=== PATIENT | female | born 1990 | race Caucasian/White ===

== ENCOUNTER 2016-07-14 09:20 | Inpatient (IN) | payer OTHER ==
[2016-07-09 13:25] VITALS: BMI 40.4
[~2016-07-14 09:20] MED LIST: METHYLENE BLUE 1% 10 MG/1 ML VIAL NR ONE; ceFAZolin SODIUM 1 GM VIAL IVPB ONE
[2016-07-14] MEDS ORDERED: MIDAZOLAM HCL 2 MG/2 ML SINGLE DOSE VIAL ONE ×2 (14:04→16:04)
[2016-07-14] MEDS ORDERED: ROCURONIUM BROMIDE 50 MG/5 ML VIAL ONE ×2 (14:04→15:41)
[2016-07-14] MEDS ORDERED: LIDOCAINE HCL/PF 2% SDV 5ML VIAL ONE (14:06)
[2016-07-14] MEDS ORDERED: VASOPRESSIN 20 UNITS/ML VIAL IV ONE (14:07)
[2016-07-14] MEDS ORDERED: METHYLENE BLUE 1% 10 MG/1 ML VIAL ONE (14:07)
[2016-07-14] MEDS ORDERED: IBUPROFEN 800 MG/8 ML IJ IVPB PRN (15:09)
[2016-07-14] MEDS ORDERED: ONDANSETRON 4 MG/2 ML VIAL IVPB PRN ×2 (15:09→15:18)
[2016-07-14] MEDS ORDERED: IBUPROFEN 600 MG TABLET (FP) PO PRN (15:09)
--- NOTE | 2016-07-14 15:09 | HP ---
History & Physical Update - History History: No Change - Physical Physical: No Change - Assessment Assessment: No Change - Plan Plan: No Change (Nallely in the chart Meds: Metformin 1000mg BID Synthroid 75mcg am Lyrica 150mg tid Klonopin .5mg am)
[2016-07-14] MEDS ORDERED: DEXAMETHASONE SOD PHOSPHATE 4 MG/1 ML VIAL ONE (15:13)
[2016-07-14] MEDS ORDERED: ceFAZolin SODIUM 1 GM VIAL ONE (15:13)
[2016-07-14] MEDS ORDERED: ELECTROLYTE-148 SOLN 1,000 ML IV SCH (15:15)
[2016-07-14] MEDS ORDERED: ceFAZolin SODIUM 1 GM VIAL IVPB ONE (15:15)
[2016-07-14] MEDS ORDERED: HYDROmorphone HCL/PF 1 MG/ML VIAL (FOR PYXIS CHARGING ONLY) ONE ×2 (15:31→15:46)
[2016-07-14] MEDS ORDERED: GLYCOPYRROLATE 0.2 MG/1 ML VIAL ONE (16:21)
[2016-07-14] MEDS ORDERED: NEOSTIGMINE METHYLSULFATE 0.5 MG/ML - 10 ML MDV ONE (16:21)
[2016-07-14] MEDS ORDERED: METHYLENE BLUE 1% 10 MG/1 ML VIAL NR ONE (16:29)
--- NOTE | 2016-07-14 17:01 | OP ---
Operative Note - Note: Operative Date: 07/14/16 Pre-Operative Diagnosis: 26 yo P1 with pelvic pain, Dysmerorhea, Uterine fibroid Operation: Exploratory laparatomy, Myomectomy Findings: 6cm posterior wall fibroid normal tubes, ovaries Successful chromopertubation Post-Operative Diagnosis: Same as Pre-op Surgeon: Radha Cox Outboard Motor Assembler: Leobardo Albarran Anesthesiologist/ARTILLERY MAINTENANCE SUPERVISOR: Lamin De Los Santos Anesthesia: General Specimens Removed: 6cm fibroid Estimated Blood Loss (mls): 50 Drains, Volume Out (mls): 500 Fluid Volume Replaced (mls): 1,500 Operative Report Dictated: Yes
[2016-07-14] MEDS ORDERED: PROMETHAZINE HCL 25 MG/1 ML VIAL IVPUSH PRN (17:11)
[2016-07-14] MEDS ORDERED: PROMETHAZINE HCL 25 MG/1 ML VIAL IVPB PRN (17:11)
[2016-07-14] MEDS ORDERED: LORAZEPAM CARPU-JECT 2 MG/ML DISP.SYRIN IVPUSH ONE (17:11)
[2016-07-14] MEDS ORDERED: ONDANSETRON 4 MG/2 ML VIAL IVPUSH PRN (17:11)
[2016-07-14] MEDS ORDERED: ACETAMINOPHEN 1000 MG/100 ML VIAL (NON FORMULARY) IVPB ONE (17:11)
[2016-07-14] MEDS ORDERED: ACETAMINOPHEN INJECTION 100 ML IVPB ONE (17:12)
[2016-07-14] MEDS ORDERED: HYDROmorphone *PCA* 10MG/50ML DISP.SYRIN PCA ONE (17:12)
[2016-07-14] MEDS ORDERED: CEFAZOLIN 2 GM/D5W 50 ML IVPB SCH (18:00)
[2016-07-14] MEDS: HYDROmorphone *PCA* 10MG/50ML DISP.SYRIN PCA SCH (19:49)
[2016-07-14] MEDS ORDERED: LORAZEPAM CARPU-JECT 2 MG/ML DISP.SYRIN ONE (19:55)
[2016-07-14] MEDS ORDERED: CEFAZOLIN (PRE-DOCKED) 50 ML IVPB ONE (19:57)
[2016-07-14] MEDS: ELECTROLYTE-148 SOLN 1,000 ML IV SCH (20:10)
[2016-07-14] MEDS: LACTATED RINGERS SOLUTION 1,000 ML IV SCH (20:10)
--- NOTE | 2016-07-14 22:16 | PN ---
<Genna Salas - Last Filed: 07/14/16 22:15> Teaching Attending Note Name of Resident: Shena Maradiaga ATTENDING PHYSICIAN STATEMENT I saw and evaluated the patient. I reviewed the resident's note and discussed the case with the resident. I agree with the resident's findings and plan as documented. SUBJECTIVE: OBJECTIVE: ASSESSMENT AND PLAN: <Rodri Martinez - Last Filed: 07/14/16 22:49> Teaching Attending Note ATTENDING PHYSICIAN STATEMENT I saw and evaluated the patient. I reviewed the resident's note and discussed the case with the resident. I agree with the resident's findings and plan as documented. SUBJECTIVE: 26 yof A1 who was seen for uterine fibroids sp myomectomy today who we were consulted for her bilateral calf pain. Calf pain onset 2 hours ago. The patient stated that she initially thoat the pain felt like soreness but more recently feels like a eugene horse. The patient reported that her pain is worse in her left leg than in her right. Today is POD day 0. Patient denies fever or chills. OBJECTIVE: Vital Signs: Last Vital Signs Temp Pulse Resp BP Pulse Ox 98.4 F 74 16 130/66 96 07/14/16 19:10 07/14/16 19:10 07/14/16 19:10 07/14/16 19:10 07/14/16 18:50 Physical Exam: GEN: NAD HEENT: NCAT, PERRL CARD: RRR, S1 S2 RESP: CTAB ABD: NT, BWS x4 EXT: - bilateral calf tenderness on palpation. ASSESSMENT AND PLAN: 26 yof A1 who was seen for uterine fibroids s/p myomectomy today consult for bilateral calf pain. 1. Bilateral calf pain -Stat bl lower extremity duplex -Check electrolyte levels and replete if necessary -Pt was placed on lovenox 40mg Q12H post surgery -D dimer would not be useful as patient is post surgical -Would hold off full AC as patient is POD 0 -Await results of duplex Thank you for the consultative opportunity. Documentation prepared by Rodri Martinez, acting as forensic medical examiner for Dr. Genna Salas MD.
[2016-07-14] MEDS: CEFAZOLIN 2 GM/D5W 50 ML IVPB SCH (23:20)
--- NOTE | 2016-07-14 23:33 | HOSP ---
Subjective - Review of Symptoms Subjective: Was paged by the nurse to inform me that patient is complaining of "eugene horse" in bilateral legs. Immediately went to assess the patient. Patient had an elective Myomectomy with Chromotubation today at 5 pm in the evening. Was brought in the unit at around 7:15pm. Patient said after she came back to the unit, she has been having severe calf muscle cramps bilaterally, on/off since half an hour. Has abdominal pain which is controlled by the HOSPITAL WARD CLERK hydromorphone pump. No other complaints. Denies chest pain, sob, cough, palpitation, fever, chills, rigors, sweating. Physical Examination: Vitals: BP 120/75mmHg, P-68bpm, T-98.2F, RR-15 General: Morbidly obese female, awake, alert, oriented x 3, in no acute distress. HEENT: EOM intact, no pallor or icterus. Chest: B/L lungs clear, no added sounds CVS: Regular rate and rhythm, no murmur Abdomen: Soft, tenderness over the surgical site, bandage applied, no soakage, organomegaly couldn't be appreciated Lower extremities: B/L calf tenderness, no peripheral edema. A/P Patient is a 26 year old with PMHx of hypothyroidism and anxiety Calf muscle cramps- R/O Electrolyte imbalance, R/O DVT given the h/o of recent surgery Ordered CMP and Duplex to r/o DVT 07/14/2016 11:00pm Duplex of b/l lower extremities-Negative for DVT CMP Illness, Investigation and Plan of care explained to the patient. She verbalized understanding. Case discussed with Dr. Salas. Physical Examination Vital Signs: Vital Signs Temperature 98.4 F 07/14/16 19:10 Pulse Rate 74 07/14/16 19:10 Respiratory Rate 16 07/14/16 19:10 Blood Pressure 130/66 07/14/16 19:10 O2 Sat by Pulse Oximetry (%) 96 07/14/16 18:50
[2016-07-14 23:44] LABS: ALBUMIN 3.6 g/dl (3.4-5.0); ALK PHOS 94 U/L (45-117); ANION GAP 11 (8-16); BILIRUBIN,TOTAL 0.5 mg/dL (0.2-1.0); CALCIUM 8.8 mg/dL (8.5-10.1); CO2 26 mmol/L (21-32); CREATININE 0.8 mg/dL (0.55-1.02); GLUCOSE,RANDOM 153 mg/dL (74-106); SGOT/AST 35 U/L (15-37); SGPT/ALT 42 U/L (12-78); TOT PROT 7.1 g/dl (6.4-8.2)
--- NOTE | 2016-07-15 00:22 | OP ---
DATE OF OPERATION: 07/14/2016 SURGEON: Radha Cox MD RIB STIFFENER AND HEEL DIPPER: Leobardo Albarran MD PREOPERATIVE DIAGNOSIS: 26-year-old para 1 with pelvic pain, dysmenorrhea, and uterine fibroids. POSTOPERATIVE DIAGNOSIS: 26-year-old para 1 with pelvic pain, dysmenorrhea, and uterine fibroids. PROCEDURE: Exploratory laparotomy, myomectomy. ANESTHESIA: General, Dr. De Los Santos. FINDINGS: A 6-cm posterior wall fibroid. Normal tubes and ovaries bilaterally. Successful chromopertubation. SPECIMEN REMOVED: A 6-cm fibroid. ESTIMATED BLOOD LOSS: 50 mL. URINE OUTPUT: 500 mL. FLUID VOLUME REPLACED: 1500 mL. DESCRIPTION OF OPERATIVE PROCEDURE: The patient was explained the risks, benefits, and alternatives of the procedure and signed an informed consent with witness present. The patient was taken to the operating room where patient's medical record number was confirmed during the preoperative timeout. After the establishment of adequate anesthesia, sequential devices were placed and antibiotic prophylaxis was given. The patient was placed in the dorsal lithotomy position using Amadeo stirrups. Patient was prepped and draped in the usual sterile fashion. Pelvic examination conducted after administration of the anesthesia. The uterus was found to be approximately 12 weeks with the posterior 6-cm fibroid. Subsequently, cervix was dilated to allow placement of the HUMI manipulator and Kenndey catheter was placed sterilely. Subsequently, Pfannenstiel skin incision was made with a scalpel, brought down to the level of fascia with Bovie cautery. Fascia was incised in the same fashion as the Pfannenstiel skin incision. The fascial incision was extended bilaterally with Bovie cautery. Huma clamps were placed on the fascia and it was dissected to the rectus abdominis muscle inferiorly and superiorly. Rectus abdominis muscle was split in the midline and peritoneum was tended with Kassandra clamps with good visualization of underlying bowel. It was incised with Metzenbaum scissors and peritoneal incision was extended bilaterally with Bovie cautery. Patient was placed into Trendelenburg position and bowel was tucked with bilateral sponges. The uterus was exteriorized and posterior wall 6-cm fibroid was noted. Normal tubes and ovaries were also noted bilaterally. Then 5 mL of dilute Pitocin solution was injected into the serosa overlying the fibroid. Bovie cautery was used to incise the uterine serosa over the fibroid. Subsequently 2 Allis clamps were placed on the serosa and sweetheart tenaculum was used to grasp the fibroid muscle. Traction and countertraction were used and approximately 6-cm fibroid was excised out of the uterus and sent to pathology. The created defect was subsequently repaired with 0 V-loc stitch in running multilayer closure and subsequently 2-0 V-loc stitch was used to reapproximate the muscle further. There were multiple layers of muscle that were brought together to close the defect. Subsequently 2-0 Vicryl suture was used to create a baseball stitch on serosal surfaces. Excellent hemostasis was achieved. Uterus was returned into the pelvis and chromopertubation with methylene blue injection was performed. Bilateral spillage from fallopian tubes was noted. Abdomen was irrigated with sterile water. Excellent hemostasis was achieved. All instruments and sponges were removed from the abdomen. Count was correct. Subsequently, the peritoneum was repaired with 2-0 Vicryl in running suture. Muscle was reapproximated in the midline with 2-0 Vicryl. The fascial incision was repaired with 0 Vicryl in two halves. The subcutaneous tissue, which was approximately 2 inches, was reapproximated with 2-0 Vicryl to close the subcutaneous defect and decrease the risk of seroma formation. Skin was closed with 3-0 Biosyn in a subcuticular fashion. Dressing was placed on the abdomen. The uterine manipulator was removed from the cervix. The patient was replaced into the supine position. Lap, instrumention, and sponge count was correct x2. Drake [id number]
[2016-07-15] MEDS: LACTATED RINGERS SOLUTION 1,000 ML IV SCH ×2 (01:26→19:33)
--- NOTE | 2016-07-15 02:10 | CONSULT ---
Consultation: REQUESTING PROVIDER: CONSULT REQUEST: We have been asked to medically evaluate this patient for B/L leg crams HISTORY OF PRESENT ILLNESS: Patient is a 26 year old female with past medical history of Hypothyroidism , anxiety, fibroid uterus was admitted at [facility] for an elective myomectomy. Patient had an elective Myomectomy with Chromotubation today at 5 pm in the evening. Was brought in the unit at around 7:15pm. Patient said after she came back to the unit, she has been having severe calf muscle cramps bilaterally, on/off since half an hour. Has abdominal pain which is controlled by the AREA LOSS PREVENTION MANAGER hydromorphone pump. No other complaints. Denies chest pain, sob, cough, palpitation, fever, chills, rigors, sweating, nausea or vomiting. Past Medical Hx: as mentioned above Allergies: Ketorolac Past Surgical Hx: LSC Fallopian tube cyst 2007 LSC scar tissue 2010 LSC cholecystectomy 2016 Wrist surgery Family Hx: Not significant Smoking: Denies Alcohol: Denies Drugs: Denies REVIEW OF SYSTEMS: CONSTITUTIONAL: Absent: fever, chills, diaphoresis, generalized weakness, malaise, loss of appetite, weight change HEENT: Absent: rhinorrhea, nasal congestion, throat pain, throat swelling, difficulty swallowing, mouth swelling, ear pain, eye pain, visual changes CARDIOVASCULAR: Absent: chest pain, syncope, palpitations, irregular heart rate, lightheadedness , peripheral edema RESPIRATORY: Absent: cough, shortness of breath, dyspnea with exertion, orthopnea, wheezing, stridor, hemoptysis GASTROINTESTINAL: Absent: abdominal pain, abdominal distension, nausea, vomiting, diarrhea, constipation, melena, hematochezia GENITOURINARY: Absent: dysuria, frequency, urgency, hesitancy, hematuria, flank pain, genital pain MUSCULOSKELETAL: Present: B/L calf muscle cramps Absent: myalgia, arthralgia, joint swelling, back pain, neck pain SKIN: Absent: rash, itching, pallor HEMATOLOGIC/IMMUNOLOGIC: Absent: easy bleeding, easy bruising, lymphadenopathy, frequent infections ENDOCRINE: Absent: unexplained weight gain, unexplained weight loss, heat intolerance, cold intolerance NEUROLOGIC: Absent: headache, focal weakness or paresthesias, dizziness, unsteady gait, seizure, mental status changes, bladder or bowel incontinence PSYCHIATRIC: Absent: anxiety, depression, suicidal or homicidal ideation, hallucinations. PHYSICAL EXAMINATION Vital Signs - 24 hr 07/14/16 07/14/16 07/14/16 10:24 10:44 10:45 Temperature 97.8 F 97.8 F Pulse Rate 73 73 Respiratory 19 19 Rate Blood Pressure 122/81 122/81 O2 Sat by Pulse 97 Oximetry (%) 07/14/16 07/14/16 07/14/16 17:04 17:20 17:30 Temperature 97.5 F L Pulse Rate 75 66 68 Respiratory 16 18 18 Rate Blood Pressure 119/74 128/76 118/70 O2 Sat by Pulse 95 98 Oximetry (%) 07/14/16 07/14/16 07/14/16 17:35 17:50 18:00 Temperature Pulse Rate 68 74 72 Respiratory 18 16 16 Rate Blood Pressure 118/70 110/70 118/75 O2 Sat by Pulse 97 97 Oximetry (%) 07/14/16 07/14/16 07/14/16 18:05 18:20 18:30 Temperature Pulse Rate 72 76 65 Respiratory 16 16 16 Rate Blood Pressure 118/75 113/70 116/68 O2 Sat by Pulse 96 96 Oximetry (%) 07/14/16 07/14/16 07/14/16 18:35 18:50 19:10 Temperature 98.4 F Pulse Rate 65 76 74 Respiratory 16 18 16 Rate Blood Pressure 116/68 115/70 130/66 O2 Sat by Pulse 95 96 Oximetry (%) 07/14/16 07/15/16 20:00 01:33 Temperature 98.2 F 98.1 F Pulse Rate 65 90 Respiratory 18 18 Rate Blood Pressure 123/71 132/77 O2 Sat by Pulse Oximetry (%) General: Morbidly obese female, awake, alert, oriented x 3, in no acute distress. HEENT: EOM intact, no pallor or icterus. Chest: B/L lungs clear, no added sounds CVS: Regular rate and rhythm, no murmur Abdomen: Soft, tenderness over the surgical site, bandage applied, no soakage, organomegaly couldn't be appreciated Lower extremities: B/L calf tenderness, no peripheral edema. Laboratory Results - last 24 hr 07/14/16 07/14/16 07/14/16 09:43 09:43 10:05 Sodium Potassium Chloride Carbon Dioxide Anion Gap BUN Creatinine Creat Clearance w eGFR Random Glucose Calcium Magnesium Total Bilirubin AST ALT Alkaline Phosphatase Total Protein Albumin Urine HCG, Qual Negative Blood Type O NEGATIVE O NEGATIVE Antibody Screen Negative 07/14/16 07/15/16 23:10 00:28 Sodium 140 Potassium 4.3 Chloride 103 Carbon Dioxide 26 Anion Gap 11 BUN 8 Creatinine 0.8 Creat Clearance w eGFR > 60 Random Glucose 153 H Calcium 8.8 Magnesium 1.7 L Total Bilirubin 0.5 AST 35 ALT 42 Alkaline Phosphatase 94 Total Protein 7.1 Albumin 3.6 Urine HCG, Qual Blood Type Antibody Screen Active Medications Generic Name Dose Route Start Last Admin Trade Name Freq PRN Reason Stop Dose Admin Clonazepam 0.5 mg 07/14/16 17:04 Klonopin - PO BID PRN ANXIETY Diphenhydramine HCl 12.5 mg 07/14/16 17:11 Benadryl Injection - IVPUSH ONCE PRN FOR ITCHING Enoxaparin Sodium 40 mg 07/15/16 08:00 Lovenox - SQ Q12H LILIAN Fentanyl 50 mcg 07/14/16 17:11 Sublimaze Injection - IVPUSH 07/17/16 17:12 [id number] PRN PAIN Hydromorphone HCl 0 mg 07/14/16 17:15 07/14/16 19:49 Dilaudid Tax Map Technician - AREA LOSS PREVENTION MANAGER 07/21/16 17:13 Not Given AREA LOSS PREVENTION MANAGER [facility] Protocol Parenteral Electrolytes 1,000 mls @ 125 mls/hr 07/14/16 15:30 07/14/16 20:10 Plasma-Lyte 148 - IV Not Given ASDIR LILIAN Lactated Ringer's 1,000 mls @ 75 mls/hr 07/14/16 17:15 07/15/16 01:26 Lactated Ringers Solution IV 75 mls/hr ASDIR LILIAN Administration Cefazolin Sodium/Dextrose 50 mls @ 100 mls/hr 07/14/16 23:00 07/14/16 23:20 Ancef 2 Gm Premixed Ivpb - IVPB 07/15/16 07:29 100 mls/hr Q8H LILIAN Administration Ibuprofen 600 mg 07/14/16 15:09 Motrin - PO Q6H PRN FEVER Ibuprofen 800 mg 07/14/16 15:09 Caldolor Injection - IVPB Q6H PRN FEVER Levothyroxine Sodium 75 mcg 07/15/16 08:00 Synthroid - PO 07/15/16 08:01 ONCE ONE Ondansetron HCl 4 mg 07/14/16 15:18 Zofran Injection IVPB Q6H PRN NAUSEA Ondansetron HCl 4 mg 07/14/16 17:11 Zofran Injection IVPUSH 07/15/16 05:12 Q4H PRN NAUSEA AND/OR VOMITING Oxycodone HCl 5 mg 07/14/16 15:09 Roxicodone - PO Q4H PRN PAIN LEVEL 1-5 Promethazine HCl 12.5 mg 07/14/16 17:11 Phenergan Injection - IVPB Q6H PRN NAUSEA AND/OR VOMITING ASSESSMENT/PLAN: Patient is a 26 year old with PMHx of hypothyroidism and anxiety was admitted for an elective myomectomy now complaining of B/L leg cramps like "eugene horse". #Calf muscle cramps- R/O Electrolyte imbalance, R/O DVT given the h/o of recent surgery Ordered CMP and Duplex to r/o DVT 07/14/2016 11:00pm Duplex of b/l lower extremities-Negative for DVT CMP-Normal Magnesium-1.7-Magnesium repleted Patient improving. Illness, Investigation and Plan of care explained to the patient. She verbalized understanding. Case discussed with Dr. Salas. Thank you for this consultative opportunity. Visit type - Emergency Visit Emergency Visit: Yes ED Registration Date: 07/14/16 Care time: The patient presented to the Emergency Department on the above date and was hospitalized for further evaluation of their emergent condition. - New Patient This patient is new to me today: Yes Date on this admission: 07/14/16 - Critical Care Critical Care patient: No
[2016-07-15] MEDS ORDERED: MAGNESIUM SULF 50% (8.12 MEQ/2 ML-1 GM VIAL) IVPB ONE (04:15)
[2016-07-15] MEDS ORDERED: MAGNESIUM SULFATE 2 GM in SODIUM CHLORIDE 100 ML IVPB ONE (04:30)
[2016-07-15] MEDS: MAGNESIUM SULF 50% (8.12 MEQ/2 ML-1 GM VIAL) IVPB ONE ×2 (04:40→05:00)
[2016-07-15] MEDS: CEFAZOLIN 2 GM/D5W 50 ML IVPB SCH (06:21)
[2016-07-15] MEDS ORDERED: LEVOTHYROXINE NA 75 MCG TABLET (FP) PO ONE (08:00)
[2016-07-15] MEDS: ENOXAPARIN NA (PORCINE) 40 MG/0.4 ML DISP.SYRIN SQ SCH ×2 (08:00→20:50)
[2016-07-15 08:26] LABS: MCH 31.9 pg (25.7-33.7); MCHC 33.5 g/dl (32.0-36.0); MEAN CELL VOLUME 95.3 fl (80-96); MEAN PLT VOLUME 8.3 fl (7.5-11.1); PLATELET COUNT 406 K/MM3 (134-434); RDW 13.4 % (11.6-15.6); WHITE BLOOD COUNT 19.4 K/mm3 (4.0-10.0)
[2016-07-15] MEDS: oxyCODONE HCL 5 MG TABLET PO PRN ×6 (09:04→22:24)
[2016-07-15] MEDS ORDERED: ONDANSETRON 8 MG TABLET (FP) PO PRN (09:29)
--- NOTE | 2016-07-15 09:35 | PN ---
Progress Note, Physician Chief Complaint: 26 yo P1 POD # 1 s/p Abdominal Myomectomy no complains, still in bed - Current Medication List Current Medications: Active Medications Acetaminophen (Tylenol -) 1,000 mg PO Q6H PRN PRN Reason: FEVER OR PAIN Clonazepam (Klonopin -) 0.5 mg PO BID PRN PRN Reason: ANXIETY Diphenhydramine HCl (Benadryl Injection -) 12.5 mg IVPUSH ONCE PRN PRN Reason: FOR ITCHING Enoxaparin Sodium (Lovenox -) 40 mg SQ Q12H [facility] Last Admin: 07/15/16 08:00 Dose: 40 mg Fentanyl (Sublimaze Injection -) 50 mcg IVPUSH [id number] PRN PRN Reason: PAIN Stop: 07/17/16 17:12 Hydromorphone HCl (Dilaudid Prop Maker -) 0 mg DIESEL ENGINE OPERATOR DIESEL ENGINE OPERATOR LILIAN PRN Reason: Protocol Stop: 07/21/16 17:13 Last Admin: 07/14/16 19:49 Dose: Not Given Parenteral Electrolytes (Plasma-Lyte 148 -) 1,000 mls @ 125 mls/hr IV ASDIR [facility] Last Admin: 07/14/16 20:10 Dose: Not Given Lactated Ringer's (Lactated Ringers Solution) 1,000 mls @ 75 mls/hr IV ASDIR [facility] Last Admin: 07/15/16 01:26 Dose: 75 mls/hr Ibuprofen (Motrin -) 600 mg PO Q6H PRN PRN Reason: FEVER Ibuprofen (Caldolor Injection -) 800 mg IVPB Q6H PRN PRN Reason: FEVER Ondansetron HCl (Zofran -) 8 mg PO Q8H PRN PRN Reason: NAUSEA Oxycodone HCl (Roxicodone -) 5 mg PO Q4H PRN PRN Reason: PAIN LEVEL 1-5 Last Admin: 07/15/16 09:04 Dose: 5 mg Promethazine HCl (Phenergan Injection -) 12.5 mg IVPB Q6H PRN PRN Reason: NAUSEA AND/OR VOMITING - Objective Vital Signs: Vital Signs Temperature 98.3 F 07/15/16 06:00 Pulse Rate 88 07/15/16 06:00 Respiratory Rate 18 07/15/16 06:00 Blood Pressure 114/64 07/15/16 06:00 O2 Sat by Pulse Oximetry (%) 96 07/14/16 18:50 Constitutional: Yes: Well Nourished HENT: Yes: WNL Neck: Yes: WNL Cardiovascular: Yes: WNL Respiratory: Yes: WNL Gastrointestinal: Yes: Hypoactive Bowel Sounds Genitourinary: Yes: WNL Musculoskeletal: Yes: WNL Extremities: Yes: WNL Integumentary: Yes: WNL Wound/Incision: Yes: Dressing Dry and Intact Neurological: Yes: WNL ...Motor Strength: WNL Psychiatric: Yes: Alert, Oriented Labs: CBC, BMP 07/15/16 06:50 07/14/16 23:10 Assessment/Plan 26 yo P1 POD#1 s/p Abdominal Myomectomy VSS, Afibrile h/h stable Elevated, likely reactional WBC, no signs of infection will repeat CBC 07/16/16 cont routine postOp care
[2016-07-15] MEDS: ACETAMINOPHEN 500 MG TABLET (FP) PO PRN ×3 (11:48→22:25)
--- NOTE | 2016-07-15 11:59 | PN ---
Progress Note (short form) - Note Progress Note: Anesthesia postop note 26 y/o F s/p GA for Abdominal Myomectomy POD#1, vss, aaox3, pain well controlled with youth pastor, tolerating po fluids Encouraged to ambulate, will dc the youth pastor. No anesthesia complications.
[2016-07-15] MEDS: clonazePAM 0.5 MG TABLET PO PRN ×2 (16:24→23:56)
[2016-07-15] MEDS: ELECTROLYTE-148 SOLN 1,000 ML IV SCH (19:28)
[2016-07-15] MEDS: HYDROmorphone *PCA* 10MG/50ML DISP.SYRIN PCA SCH (19:32)
[2016-07-16] MEDS: ACETAMINOPHEN 500 MG TABLET (FP) PO PRN ×3 (05:47→20:43)
[2016-07-16] MEDS: oxyCODONE HCL 5 MG TABLET PO PRN ×5 (05:47→22:29)
[2016-07-16] MEDS: clonazePAM 0.5 MG TABLET PO PRN ×2 (08:14→22:29)
[2016-07-16] MEDS: ENOXAPARIN NA (PORCINE) 40 MG/0.4 ML DISP.SYRIN SQ SCH ×2 (08:14→20:43)
[2016-07-16 10:09] LABS: BASOPHIL 0.6 % (0-2.0); EOSINOPHIL 0.6 % (0-4.5); MCH 32.3 pg (25.7-33.7); MEAN PLT VOLUME 8.3 fl (7.5-11.1); NEUTROPHILS 68.2 % (42.8-82.8); PLATELET COUNT 361 K/MM3 (134-434); RDW 13.1 % (11.6-15.6); WHITE BLOOD COUNT 15.5 K/mm3 (4.0-10.0)
--- NOTE | 2016-07-16 12:56 | PATH ---
Surgical Pathology Report Patient Name: JOSE ROBERTO VOGT [facility]. Rec. #: [id number] /Age/Gender: 1990 (Age: 26) / F Account: [id number] Location: [facility] OBS/CIVIL ATTORNEY Taken: 07/14/2016 Received: 07/15/2016 Reported: 07/16/2016 Physicians: Leobardo Albarran M.D. Specimen(s) Received UTERINE MYOMAS Clinical History Leiomyoma of uterus Final Diagnosis UTERUS, ABDOMINAL MYOMECTOMY: LEIOMYOMA, 65 GRAMS. Electronically Signed Mario Webster M.D. Gross Description Received in formalin, labeled "uterine myoma," is a 65 g, 5.5 x 5.0 x 4.0 cm rubbery nodule, consistent with a fibroid. Sectioning reveals serrato-pink, rubbery parenchyma with whorled architecture. Onsite Case Manager sections are submitted in 3 cassettes. /07/15/2016 saudi/07/15/2016
--- NOTE | 2016-07-16 15:20 | PN ---
Progress Note, Physician Chief Complaint: 26 yo P1 POD # 2 s/p Abdominal Myomectomy no complains, reports walking, +flatus, tolerating regular diet - Current Medication List Current Medications: Active Medications Acetaminophen (Tylenol -) 1,000 mg PO Q6H PRN PRN Reason: FEVER OR PAIN Last Admin: 07/16/16 13:01 Dose: 1,000 mg Acetaminophen (Tylenol -) 500 mg PO Q4H PRN PRN Reason: PAIN Clonazepam (Klonopin -) 0.5 mg PO BID PRN PRN Reason: ANXIETY Last Admin: 07/16/16 08:14 Dose: 0.5 mg Enoxaparin Sodium (Lovenox -) 40 mg SQ Q12H LILIAN Last Admin: 07/16/16 08:14 Dose: 40 mg Ondansetron HCl (Zofran -) 8 mg PO Q8H PRN PRN Reason: NAUSEA Oxycodone HCl (Roxicodone -) 5 mg PO Q4H PRN PRN Reason: PAIN LEVEL 1-5 Last Admin: 07/15/16 14:26 Dose: 5 mg Oxycodone HCl (Roxicodone -) 10 mg PO Q4H PRN PRN Reason: PAIN Last Admin: 07/16/16 14:32 Dose: 10 mg - Objective Vital Signs: Vital Signs Temperature 99.2 F 07/16/16 10:00 Pulse Rate 76 07/16/16 10:00 Respiratory Rate 18 07/16/16 10:00 Blood Pressure 131/78 07/16/16 10:00 O2 Sat by Pulse Oximetry (%) 96 07/14/16 18:50 Constitutional: Yes: Well Nourished HENT: Yes: WNL Neck: Yes: WNL Cardiovascular: Yes: WNL Respiratory: Yes: WNL Gastrointestinal: Yes: WNL, Normal Bowel Sounds Genitourinary: Yes: WNL Musculoskeletal: Yes: WNL Extremities: Yes: WNL Wound/Incision: Yes: Clean/Dry, Sutures Intact Neurological: Yes: WNL ...Motor Strength: WNL Labs: CBC, BMP 07/16/16 09:40 07/14/16 23:10 Assessment/Plan 26 yo P1 POD#2 s/p Abdominal Myomectomy VSS, Afibrile h/h stable Elevated, likely reactional WBC, tranding down, no signs of infection will repeat CBC 07/17/16 cont routine postOp care
[2016-07-17] MEDS: oxyCODONE HCL 5 MG TABLET PO PRN ×2 (06:47→10:54)
[2016-07-17] MEDS: ENOXAPARIN NA (PORCINE) 40 MG/0.4 ML DISP.SYRIN SQ SCH (08:34)
[2016-07-17 08:41] LABS: BASOPHIL 0.5 % (0-2.0); EOSINOPHIL 0.9 % (0-4.5); MCH 31.7 pg (25.7-33.7); MCHC 33.4 g/dl (32.0-36.0); MEAN CELL VOLUME 95.1 fl (80-96); NEUTROPHILS 71.8 % (42.8-82.8); PLATELET COUNT 375 K/MM3 (134-434); RDW 13.4 % (11.6-15.6); WHITE BLOOD COUNT 12.9 K/mm3 (4.0-10.0)
[2016-07-17] MEDS: clonazePAM 0.5 MG TABLET PO PRN (09:02)
[2016-07-17] MEDS: ACETAMINOPHEN 500 MG TABLET (FP) PO PRN (09:05)
--- NOTE | 2016-07-17 10:13 | PN ---
Progress Note (SOAP) - Subjective Chief Complaint: Has some incisional pain. Otherwise no complaints. Has flatus, no nausea or vomiting; no fever or chills. History of Present Illness: POD#3 s/p abdom myomectomy. - Current Medications Current Medications: Active Medications Acetaminophen (Tylenol -) 1,000 mg PO Q6H PRN PRN Reason: FEVER OR PAIN Last Admin: 07/16/16 13:01 Dose: 1,000 mg Acetaminophen (Tylenol -) 500 mg PO Q4H PRN PRN Reason: PAIN Last Admin: 07/17/16 09:05 Dose: 500 mg Clonazepam (Klonopin -) 0.5 mg PO BID PRN PRN Reason: ANXIETY Last Admin: 07/17/16 09:02 Dose: 0.5 mg Enoxaparin Sodium (Lovenox -) 40 mg SQ Q12H LILIAN Last Admin: 07/17/16 08:34 Dose: 40 mg Ondansetron HCl (Zofran -) 8 mg PO Q8H PRN PRN Reason: NAUSEA Oxycodone HCl (Roxicodone -) 5 mg PO Q4H PRN PRN Reason: PAIN LEVEL 1-5 Last Admin: 07/15/16 14:26 Dose: 5 mg Oxycodone HCl (Roxicodone -) 10 mg PO Q4H PRN PRN Reason: PAIN Last Admin: 07/17/16 06:47 Dose: 10 mg - Objective Vital Signs: Vital Signs Temperature 98.6 F 07/16/16 22:00 Pulse Rate 90 07/16/16 22:00 Respiratory Rate 18 07/16/16 22:00 Blood Pressure 121/79 07/16/16 22:00 O2 Sat by Pulse Oximetry (%) 96 07/14/16 18:50 Constitutional: Yes: Well Nourished, No Distress, Calm, Obese Eyes: Yes: WNL, Conjunctiva Clear, EOM Intact HENT: Yes: WNL, Atraumatic, Normocephalic Neck: Yes: WNL, Supple, Trachea Midline Cardiovascular: Yes: WNL, Regular Rate and Rhythm Respiratory: Yes: WNL, Regular, CTA Bilaterally Gastrointestinal: Yes: WNL, Normal Bowel Sounds, Soft, Abdomen, Obese Genitourinary: Yes: WNL Musculoskeletal: Yes: WNL Extremities: Yes: WNL Peripheral Pulses WNL: Yes Edema: No Integumentary: Yes: WNL Wound/Incision: Yes: Clean/Dry, Well Approximated, Sutures Intact Neurological: Yes: WNL, Alert, Oriented ...Motor Strength: Yes: WNL Psychiatric: Yes: WNL, Alert, Oriented Labs Lab Results: CBC, BMP 07/17/16 08:15 07/14/16 23:10 Assessment/Plan POD#3 s/p myomectomy. pt is doing well, stable, afebrile. Ambulation encouraged. Post op instructions reviewed. Plan to d/c home.
[2016-07-17 10:20] VITALS: BP 126/85; PULSE 91; TEMP 97.9
--- NOTE | 2016-08-04 16:04 | DS ---
Physical Examination Vital Signs: Vital Signs Temperature 97.9 F 07/17/16 10:15 Pulse Rate 91 H 07/17/16 10:15 Respiratory Rate 20 07/17/16 10:15 Blood Pressure 126/85 07/17/16 10:15 O2 Sat by Pulse Oximetry (%) 96 07/14/16 18:50 Constitutional: Yes: Well Nourished HENT: Yes: WNL Neck: Yes: WNL Cardiovascular: Yes: WNL Respiratory: Yes: WNL Gastrointestinal: Yes: Normal Bowel Sounds, Soft Renal/: Yes: WNL Musculoskeletal: Yes: WNL Wound/Incision: Yes: Clean/Dry, Well Approximated Neurological: Yes: WNL ...Motor Strength: WNL Labs: CBC, BMP 07/17/16 08:15 07/14/16 23:10 Discharge Summary Reason For Visit: LEIOMYOMA OF UTERUS Condition: Good - Instructions Diet, Activity, Other Instructions: Dr. Mayco Forrester Torch Solderer discharge instructions Physical activity Resume your normal everyday activity as tolerated no heavy lifting or exercise until seen by your surgeon. You may walk unlimited [place] of and climb stairs. You may resume driving the car when you feel safe and comfortable behind the wheel. No sexual activity as instructed by Dr. Forrester. Wound care If you have a bandage, leave it on, and keep dry for 48-72 hours. After that time discard the outer bandage. If they are tapes on the skin under the out of bandage leave them in place. They will peel off in the next 7 to 10 days. Do Not Peel them off. You may shower the day after surgery. If there are tapes present on the skin, you may shower over them. Diet There are no dietary restrictions. Eat healthy, high-fiber foods. Drink 6 to 8 glasses of liquid each day. This will assist in keeping your bowels are regular. Pain management You may take Tylenol or acetaminophen or Ibuprofen (for example, Motrin, Advil etc.) from my pain prescription medication is ordered should be taken as prescribed for moderate to severe pain. Call Dr. Forrester for any of the following: Severe pain not relieved by medication Fever of 101 or higher Excessive bleeding or drainage on dressing Inability to urinate Call the office at [phone] for an appointment in seven days. Referrals: Radha Cox MD [Staff Physician] - Disposition: HOME - Home Medications Comprehensive Discharge Medication List: Ambulatory Orders Clonazepam [KlonoPIN] 0.25 mg PO HS 07/09/16 Clonazepam [KlonoPIN] 0.5 mg PO DAILY 07/09/16 Hydroxycut 1 tab PO PRN PRN 07/09/16 L.acidoph,Paracasei, B.lactis [Probiotic] 1 each PO DAILY 07/09/16 Levothyroxine [Synthroid -] 75 mcg PO DAILY 07/09/16 Metformin HCl [Metformin HCl ER] 1,000 mg PO BID 07/09/16 Pregabalin [Lyrica -] 150 mg PO TID 07/09/16 Oxycodone HCl/Acetaminophen [Percocet 5-325 mg Tablet -] 1 - 2 tab PO Q6H PRN # 20 tab MDD 8 07/17/16
== END 2016-07-17 13:40 | disposition home or self-care (01) | DRG 519 ==
LOC: JSAMEDAYSX 09:20 → J3W 19:35
PROVIDERS: ADMIT Obstetrics & Gynecology; ATTEND Obstetrics & Gynecology
PROC: 0UB90ZZ Excision of Uterus, Open Approach (ICD-10-PCS; principal; 2016-07-14 12:00)
DX: D25.9 Leiomyoma of uterus, unspecified (principal); N94.6 Dysmenorrhea, unspecified; E03.9 Hypothyroidism, unspecified
CPT/HCPCS: 36415; 80053; 83735; 84703; 85025; 85027; 86850; 86900; 86901; 88307-TC; 93970-TC; 94010; 94760